=== PATIENT | male | born 1960 | race Caucasian/White ===

== ENCOUNTER 2022-06-12 11:08 | Emergency (ER) | payer OTHER ==
[2022-06-12 12:31] LABS: INR-International Normal Ratio 1.5; PTT 27.6 sec (22.0-33.0); Prothrombin Time 15.7 sec (9.5-12.1)
[2022-06-12 12:34] LABS: ALT (SGPT) 89 U/L (8-55); AST (SGOT) 121 U/L (5-34); Albumin 2.2 g/dL (3.4-4.8); Alkaline Phosphatase 161 U/L (40-110); Anion Gap 12 mmol/L (10-20); BUN (Urea Nitrogen) 12 mg/dL (8.4-25.7); Bilirubin, Total 4.6 mg/dL (0.2-1.2); CK (CPK) 152 U/L (30-200); CRP (Inflammatory) 5.04 mg/dL (= or < 0.5); Calc. Creatinine Clearance 0 mL/min (70-130); Calcium 8.3 mg/dL (7.8-10.44); Carbon Dioxide 22 mmol/L (23-31); Chloride 101 mmol/L (98-107); Estimated GFR 105; Globulin 4.9 g/dL (2.4-3.5); Glucose 90 mg/dL (80-115); Potassium 3.8 mmol/L (3.5-5.1); Protein, Total 7.1 g/dL (5.8-8.1); Sodium 131 mmol/L (136-145)
[2022-06-12 12:40] LABS: #Eosinphils 0.1 10x3/uL (0.0-0.5); #Monocytes 0.5 10x3/uL (0.0-1.1); #Neutrophils 3.4 10x3/uL (1.5-8.4); %Basophils 0.6 % (0.0-2.0); %Eosinophils 1.2 % (0.0-6.0); %Lymphocytes 15.8 % (18.0-47.0); %Neutrophils 70.6 % (40.0-75.0); Mean Corpuscular HGB CONC 34.5 g/dL (32.0-36.0); Mean Corpuscular Hemoglobin 33.9 pg (27.0-33.0); Mean Corpuscular Volume 98.4 fl (81.2-95.1); Platelet Count 80 10x3/uL (150-450); RBC Distribution Width 14.3 % (11.5-14.5); Red Blood Cell (RBC) Count 3.83 10x6/uL (4.32-5.72); White Blood Cell (WBC) Count 4.8 10x3/uL (3.5-10.5)
[2022-06-12 12:44] LABS: SARS-CoV-2 NAA Rapid Test Not Detected (NotDetected)
[2022-06-12] MEDS ORDERED: Furosemide 40 MG/4 ML VIAL ONE (14:06)
[2022-06-12] MEDS ORDERED: cefTRIAXone\\ROCEPHIN 2 GM VIAL ONE (14:06)
[2022-06-12 15:24] LABS: Lactic Acid 2.6 mmol/L (0.5-2.2)
== END 2022-06-12 18:04 | disposition short-term general hospital (02) ==
LOC: CSHERS 11:08
DX: R10.9 Unspecified abdominal pain (principal); R18.8 Other ascites; J44.9 Chronic obstructive pulmonary disease, unspecified; I10 Essential (primary) hypertension; E03.9 Hypothyroidism, unspecified; Z20.822 Contact with and (suspected) exposure to COVID-19
CPT/HCPCS: 36415; 71045; 80053; 82140; 82550; 83605; 83690; 85025; 85610; 85730; 86140; 87040; 93005; 96365; 96366; 96375; J0696; J1940; J3370; U0002

== ENCOUNTER 2022-07-05 15:49 | Emergency (ER) | payer OTHER ==
[2022-07-05 16:56] LABS: #Monocytes 1.1 10x3/uL (0.0-1.1); #Neutrophils 8.6 10x3/uL (1.5-8.4); %Basophils 0.2 % (0.0-2.0); %Lymphocytes 5.8 % (18.0-47.0); %Monocytes 10.2 % (0.0-10.0); %Neutrophils 83.2 % (40.0-75.0); Hemoglobin 14.1 g/dL (13.5-17.5); Mean Corpuscular HGB CONC 35.2 g/dL (32.0-36.0); Mean Corpuscular Volume 93.9 fl (81.2-95.1); Mean Platelet Volume 10.5 fl (7.4-10.4); Platelet Count 79 10x3/uL (150-450); RBC Distribution Width 14.9 % (11.5-14.5); Red Blood Cell (RBC) Count 4.24 10x6/uL (4.32-5.72); White Blood Cell (WBC) Count 10.1 10x3/uL (3.5-10.5)
[2022-07-05 17:06] LABS: ALT (SGPT) 94 U/L (8-55); AST (SGOT) 180 U/L (5-34); Albumin 1.9 g/dL (3.4-4.8); Alkaline Phosphatase 305 U/L (40-110); Anion Gap 11 mmol/L (10-20); BUN (Urea Nitrogen) 19 mg/dL (8.4-25.7); Bilirubin, Total 6.1 mg/dL (0.2-1.2); Calc. Creatinine Clearance 0 mL/min (70-130); Calcium 8.1 mg/dL (7.8-10.44); Carbon Dioxide 24 mmol/L (23-31); Chloride 93 mmol/L (98-107); Estimated GFR 66; Globulin 4.8 g/dL (2.4-3.5); Glucose 109 mg/dL (80-115); Potassium 3.7 mmol/L (3.5-5.1); Protein, Total 6.7 g/dL (5.8-8.1); Sodium 124 mmol/L (136-145)
== END 2022-07-05 19:03 ==
LOC: CSHERS 15:49 → EEVIPCON 15:49 → CSHERS 19:03
DX: K74.60 Unspecified cirrhosis of liver (principal); E87.1 Hypo-osmolality and hyponatremia; R74.01 Elevation of levels of liver transaminase levels; E86.0 Dehydration; R41.0 Disorientation, unspecified; J44.9 Chronic obstructive pulmonary disease, unspecified; I10 Essential (primary) hypertension; E03.9 Hypothyroidism, unspecified; Z91.14 Patient's other noncompliance with medication regimen
CPT/HCPCS: 36415; 71045; 80053; 82140; 83880; 84484; 85025; 93005

== ENCOUNTER 2022-07-09 09:25 | Inpatient (IN) | payer OTHER ==
[2022-07-09] MEDS ORDERED: NOREPINEPHRINE 8 MG/250 ML-D5W 250 ML ONE ×2 (09:37→14:17)
[2022-07-09] MEDS ORDERED: Fentanyl 100 MCG/2 ML VIAL ONE (09:54)
[2022-07-09] MEDS ORDERED: Cefepime 2 GM VIAL ONE ×2 (10:23)
[2022-07-09 10:55] LABS: ALT (SGPT) 119 U/L (8-55); AST (SGOT) 292 U/L (5-34); Albumin 1.5 g/dL (3.4-4.8); Alkaline Phosphatase 316 U/L (40-110); Anion Gap 22 mmol/L (10-20); BUN (Urea Nitrogen) 46 mg/dL (8.4-25.7); Bilirubin, Total 8.3 mg/dL (0.2-1.2); Calc. Creatinine Clearance 0 mL/min (70-130); Calcium 7.2 mg/dL (7.8-10.44); Carbon Dioxide 13 mmol/L (23-31); Chloride 92 mmol/L (98-107); Estimated GFR 20; Glucose 83 mg/dL (80-115); Potassium 4.7 mmol/L (3.5-5.1); Protein, Total 5.5 g/dL (5.8-8.1); Sodium 122 mmol/L (136-145)
[2022-07-09 10:57] LABS: Acetaminophen Less than 10.0 mcg/mL (10.0-30.0); Alcohol Less than 10 mg/dL (Less than 10); Hemoglobin 14.1 g/dL (13.5-17.5); Lipase 216 U/L (8-78); Magnesium 2.4 mg/dL (1.6-2.6); Mean Corpuscular HGB CONC 36.5 g/dL (32.0-36.0); Mean Corpuscular Hemoglobin 33.6 pg (27.0-33.0); Mean Corpuscular Volume 91.9 fl (81.2-95.1); Mean Platelet Volume 10.9 fl (7.4-10.4); Platelet Count 82 10x3/uL (150-450); RBC Distribution Width 15.1 % (11.5-14.5); Salicylate Less than 8.0 mg/dL (15.0-30.0); White Blood Cell (WBC) Count 26.3 10x3/uL (3.5-10.5)
[2022-07-09 11:13] LABS: Actual Bicarbonate (HCO3v) 15 mEq/L (22-28); Calcium, Ionized (venous) 0.96 mmol/L (1.16-1.32); Chloride (VBG) 92 mmol/L (98-106); Hemoglobin (Hb) 14.8 g/dL (13.1-17.2); Potassium (VBG) 4.41 mmol/L (3.70-5.30); Puncture Site Other Site; RapidComm Collect By CBN; Sodium 123.3 mmol/L (133-146); pH (venous) 7.21 (7.32-7.43)
[2022-07-09 11:15] LABS: CKMB 15.3 ng/mL (0-6.6)
[2022-07-09 11:30] LABS: INR-International Normal Ratio 2.7; PTT 45.8 sec (22.0-33.0); Prothrombin Time 27.3 sec (9.5-12.1)
[2022-07-09 11:34] LABS: Band 14 % (5-11); Lymphocytes 1 % (21-51); Monocytes 3 % (0-10); Myelocyte 1 % (0-0); Reactive Lymphocytes 1 % (0-10)
[2022-07-09 11:40] LABS: Anisocytosis SLIGHT = 6-15 cells (100X) (0-5/hpf); Neutrophil 80 % (42-75)
[2022-07-09] MEDS ORDERED: Albumin 25% 100 ML ONE ×2 (11:41→12:05)
[2022-07-09 11:43] LABS: Burr Cells SLIGHT = 2-5 cells (100X) (0-1/hpf); Crenated RBC SLIGHT = 1-5 cells (100X) (None Seen); Platelet Clumps MODERATE; Platelet Morphology Comment Appears Decreased; Poikilocytosis SLIGHT = 6-15 cells (100X) (0-5/hpf)
[2022-07-09 11:44] LABS: Large Platelets SLIGHT; Toxic Granulation SLIGHT
[2022-07-09 11:46] LABS: Amphetamine Not Detected (NotDetected); Barbiturates Screen Not Detected (NotDetected); Benzodiazepine Screen Not Detected (NotDetected); Cocaine Metabolite Screen Not Detected (NotDetected); Methadone Not Detected (NotDetected); Methamphetamine Not Detected (NotDetected); Opiate Screen Not Detected (NotDetected); Oxycodone Screen Not Detected (NotDetected); Phencyclidine (PCP) Not Detected (NotDetected); THC/Cannabinoid Screen Not Detected (NotDetected); Tricyclic Screen Not Detected (NotDetected)
[2022-07-09 11:46] LABS: MDiff Complete? YES
[2022-07-09 11:49] LABS: Bilirubin 3+ (Negative); Blood, Urine 25 (Negative); Clarity Sl. Cloudy (Clear); Glucose, Urine (Dipstick) Normal (Negative); Ketone, Urine 5 mg/dL (Negative); Leukocyte 25 (Negative); Nitrite Positive (Negative); Protein, Urine (Dipstick) 30 mg/dl (Neg-Trace)
[2022-07-09 11:54] LABS: Bacteria/HPF 2+ HPF (None Seen); RBC/HPF 0-3 HPF (0-3); Squamous Epithelial 0-3 HPF (0-3); WBC/HPF 0-3 HPF (0-3)
[2022-07-09] MEDS ORDERED: Calcium Gluc 4.6 MEQ/10 ML (100 MG/ML) ONE (12:04)
[2022-07-09] MEDS ORDERED: Acetaminophen 325 MG TAB PO PRN (12:05)
[2022-07-09] MEDS ORDERED: Ondansetron PF 4 MG/2 ML Vial IVP PRN (12:05)
[2022-07-09] MEDS ORDERED: Communication Order-Pharmacy FS SCH (12:05)
[2022-07-09] MEDS ORDERED: Acetaminophen 650 MG Suppository PR PRN (12:05)
[2022-07-09] MEDS ORDERED: Ventilator Sedation Protocol 1 EACH FS ONE (12:05)
[2022-07-09 12:07] LABS: SARS-CoV-2 NAA Rapid Test Not Detected (NotDetected)
[2022-07-09] MEDS ORDERED: Piperacillin/Tazobactam 3.375 GM in Sodium Chloride 0.9% 100 ML IVPB SCH (12:15)
[2022-07-09 13:26] LABS: Hemoglobin 13.4 g/dL (13.5-17.5); Mean Corpuscular HGB CONC 34.4 g/dL (32.0-36.0); Mean Corpuscular Hemoglobin 32.6 pg (27.0-33.0); Mean Corpuscular Volume 94.9 fl (81.2-95.1); Platelet Count 74 10x3/uL (150-450); RBC Distribution Width 15.4 % (11.5-14.5); Red Blood Cell (RBC) Count 4.11 10x6/uL (4.32-5.72)
[2022-07-09 13:32] LABS: INR-International Normal Ratio 2.8; Prothrombin Time 29.2 sec (9.5-12.1)
[2022-07-09 13:40] LABS: Phosphorus 6.5 mg/dL (2.3-4.7)
[2022-07-09 13:42] LABS: ALT (SGPT) 120 U/L (8-55); AST (SGOT) 291 U/L (5-34); Albumin 2.5 g/dL (3.4-4.8); Alkaline Phosphatase 287 U/L (40-110); Anion Gap 24 mmol/L (10-20); BUN (Urea Nitrogen) 46 mg/dL (8.4-25.7); Bilirubin, Total 9.1 mg/dL (0.2-1.2); Calc. Creatinine Clearance 28 mL/min (70-130); Calcium 7.5 mg/dL (7.8-10.44); Carbon Dioxide 13 mmol/L (23-31); Chloride 92 mmol/L (98-107); Estimated GFR 19; Globulin 3.6 g/dL (2.4-3.5); Glucose 108 mg/dL (80-115); Potassium 4.8 mmol/L (3.5-5.1); Protein, Total 6.1 g/dL (5.8-8.1); Sodium 124 mmol/L (136-145); Vancomycin, Trough 31.8 ug/mL
[2022-07-09 13:42] LABS: Strep pneumo Urine Ag NEGATIVE (NEGATIVE)
[2022-07-09 13:43] LABS: Bilirubin, Direct 4.8 mg/dL (0.1-0.3); Bilirubin, Total 9.2 mg/dL (0.2-1.2); Magnesium 2.5 mg/dL (1.6-2.6)
[2022-07-09 13:44] LABS: Bilirubin 3+ (Negative); Blood, Urine 25 (Negative); Glucose, Urine (Dipstick) Normal (Negative); Ketone, Urine 5 mg/dL (Negative); Leukocyte 25 (Negative); Nitrite Positive (Negative); Protein, Urine (Dipstick) 30 mg/dl (Neg-Trace)
[2022-07-09] MEDS ORDERED: Sodium Bicarb 50 MEQ/50 ML VIAL IVP SCH ×2 (13:45→16:15)
[2022-07-09 13:57] LABS: Clarity Slightly Cloudy (Clear)
[2022-07-09 13:58] LABS: HIV (1/2) Antibody/Antigen Non-Reactive (NonReactive); HIV 1/2 INDEX 0.15 S/CO (<1.00); Thyroid Stimulating Hormone 2.6979 uIU/mL (0.35-4.94)
[2022-07-09 13:59] LABS: Bacteria/HPF 2+ HPF (None Seen)
[2022-07-09 14:00] LABS: RBC/HPF 0-3 HPF (0-3); WBC/HPF 0-3 HPF (0-3)
[2022-07-09] MEDS ORDERED: Meropenem 1 GM in Sodium Chloride 0.9% 100 ML IVPB SCH (14:00)
[2022-07-09] MEDS ORDERED: Propofol BOLUS 1,000 MG/100 ML VIAL IV PRN (14:00)
[2022-07-09] MEDS ORDERED: Propofol 1,000 MG/100 ML VIAL IV PRN (14:00)
[2022-07-09] MEDS ORDERED: Fentanyl BOLUS 250 ML IVPB PRN (14:00)
[2022-07-09] MEDS ORDERED: Lorazepam 2 MG/ML VIAL SLOW IVP PRN (14:00)
[2022-07-09] MEDS ORDERED: Octreotide Acetate 100 MCG/ML VIAL SC SCH (14:00)
[2022-07-09] MEDS ORDERED: DISCONTINUE PREVIOUS NARCOTIC PAIN MEDICATIONS AND BENZODIAZEPINES FS SCH (14:00)
[2022-07-09] MEDS ORDERED: Morphine 2 MG/ML VIAL SLOW IVP PRN (14:00)
[2022-07-09 14:06] LABS: ALV-art Gradient 305.275 mmHg (0-20); Actual Bicarbonate (HCO3a) 16.1 mEq/L (22-28); Base Excess (BEa) -12.1 mEq/L (-2.0 to +3.0); CO2 Tension 44.5 mmHg (35.0-45.0); Calcium, Ionized (arterial) 0.97 mmol/L (1.12-1.30); Carboxyhemoglobin (COHb) 0.7 gm% (0.0-3.0); Hemoglobin (Hb) 14.3 g/dL (14.0-18.0); O2 Tension (PaO2), arterial 66.9 mmHg (> 80.0); Potassium - ABG Lab 4.7 mmol/L (3.70-5.30); Puncture Site RRA; pH, Arterial 7.18 (7.35-7.45)
[2022-07-09 14:09] LABS: Band 14 % (5-11); Lymphocytes 3 % (21-51); Metamyelocyte 5 % (0-0); Monocytes 6 % (0-10); Myelocyte 3 % (0-0)
[2022-07-09 14:13] LABS: Anisocytosis SLIGHT = 6-15 cells (100X) (0-5/hpf); Burr Cells MODERATE= 6-15 cells (100X) (0-1/hpf); Crenated RBC MODERATE= 6-15 cells (100X) (None Seen); Neutrophil 69 % (42-75); Poikilocytosis MODERATE=16-30 cells (100X) (0-5/hpf)
[2022-07-09] MEDS ORDERED: Vancomycin DOSE BY LEVEL IVPB PRN (14:13)
[2022-07-09] MEDS: Vasopressin 20 UNIT, Admixture Fee 1 EACH in Sodium Chloride 0.9% 50 ML IV SCH ×2 (14:13→19:41)
[2022-07-09] MEDS: Octreotide Acetate 1,250 MCG in Sodium Chloride 0.9% 250 ML 250 ML IVPB SCH (14:13)
[2022-07-09 14:14] LABS: Large Platelets SLIGHT; Toxic Granulation SLIGHT; Vacuoles SLIGHT
[2022-07-09] MEDS ORDERED: Rocuronium Bromide 10 MG/ML (10ML VIAL) ONE (14:14)
[2022-07-09 14:15] LABS: Platelet Morphology Comment Appears Decreased
[2022-07-09 14:16] LABS: MDiff Complete? YES
[2022-07-09 14:29] LABS: Creatinine, Urine 238.06 mg/dL (63-166); Protein, Urine Random Quant 108 mg/dL (1-14)
[2022-07-09 14:39] LABS: Glucose 162 mg/dL (80-115)
[2022-07-09] MEDS ORDERED: Albumin 25% 25 GM/100 ML BOT IVPB SCH (14:45)
[2022-07-09] MEDS ORDERED: Heparin 5,000 UNITS/ML VIAL SC SCH (15:00)
[2022-07-09 15:07] LABS: Lactic Acid 8.6 mmol/L (0.5-2.2)
[2022-07-09] MEDS: Albumin 25% 25 GM/100 ML BOT IVPB SCH ×2 (15:27→21:16)
[2022-07-09 16:01] LABS: Body Fluid Source Paracentesis Fluid; Tube # EDTA
[2022-07-09 16:02] LABS: BF Color Yellow; Clarity Hazy (Clear)
[2022-07-09 16:21] LABS: Glucose 179 mg/dL (80-115)
[2022-07-09 16:25] LABS: Lactic Acid 7.4 mmol/L (0.5-2.2)
[2022-07-09 16:38] LABS: BF Segmented Neutrophils 52 %; Lymphocytes 48 %
[2022-07-09 17:12] LABS: Actual Bicarbonate (HCO3a) 15.9 mEq/L (22-28); Base Excess (BEa) -11.7 mEq/L (-2.0 to +3.0); Calcium, Ionized (arterial) 0.97 mmol/L (1.12-1.30); Carboxyhemoglobin (COHb) 0.7 gm% (0.0-3.0); Hemoglobin (Hb) 14.4 g/dL (14.0-18.0); O2 Tension (PaO2), arterial 85.2 mmHg (> 80.0); Potassium - ABG Lab 4.7 mmol/L (3.70-5.30); Puncture Site RRA; Temperature 36.5 C
[2022-07-09] MEDS: NOREPINEPHRINE 8 MG/250 ML-D5W 250 ML IVPB SCH ×2 (18:36→23:49)
[2022-07-09 18:43] LABS: BUN (Urea Nitrogen) 50 mg/dL (8.4-25.7); Calc. Creatinine Clearance 26 mL/min (70-130); Potassium 4.8 mmol/L (3.5-5.1)
[2022-07-09 19:11] LABS: Glucose 132 mg/dL (80-115)
[2022-07-09 20:27] LABS: ALT (SGPT) 148 U/L (8-55); AST (SGOT) 413 U/L (5-34); Albumin 3.3 g/dL (3.4-4.8); Alkaline Phosphatase 206 U/L (40-110); Anion Gap 24 mmol/L (10-20); Bilirubin, Total 10.6 mg/dL (0.2-1.2); Calcium 7.6 mg/dL (7.8-10.44); Carbon Dioxide 18 mmol/L (23-31); Chloride 87 mmol/L (98-107); Estimated GFR 17; Globulin 2.6 g/dL (2.4-3.5); Glucose 132 mg/dL (80-115); Protein, Total 5.9 g/dL (5.8-8.1); Sodium 124 mmol/L (136-145)
[2022-07-09] MEDS: Famotidine/PF 20 mg/2ml Vial SLOW IVP SCH (20:32)
[2022-07-09] MEDS: Rifaximin 550 MG TAB PO SCH (20:33)
[2022-07-09] MEDS ORDERED: Famotidine/PF 20 mg/2ml Vial SLOW IVP SCH (21:00)
[2022-07-09 21:14] LABS: Glucose 140 mg/dL (80-115)
[2022-07-09] MEDS: Meropenem 500 MG in Sodium Chloride 0.9% 100 ML IVPB SCH (22:04)
[2022-07-09 22:51] LABS: Sodium, Urine Less than 20 mmol/L (Not Available)
[2022-07-09 22:55] LABS: Glucose 137 mg/dL (80-115)
[2022-07-10] MEDS: Vasopressin 20 UNIT, Admixture Fee 1 EACH in Sodium Chloride 0.9% 50 ML IV SCH ×2 (00:04→12:29)
[2022-07-10] MEDS: FENTANYL 2,000MCG/100-0.9%NACL 100 ML IVPB SCH (00:08)
[2022-07-10] MEDS: Sodium Bicarbonate 150 MEQ in Dextrose 5% in Water 1,000 ML IV SCH (01:35)
[2022-07-10] MEDS ORDERED: ADMIXTURE FEE IVPB SCH (02:00)
[2022-07-10] MEDS ORDERED: SODIUM CHLORIDE IVPB SCH (02:00)
[2022-07-10] MEDS ORDERED: CALCIUM GLUCONATE IVPB SCH (02:00)
[2022-07-10] MEDS: Albumin 25% 25 GM/100 ML BOT IVPB SCH ×2 (03:34→08:28)
[2022-07-10 03:46] LABS: Hemoglobin 12.9 g/dL (13.5-17.5); Mean Corpuscular HGB CONC 35.2 g/dL (32.0-36.0); Mean Corpuscular Hemoglobin 32.7 pg (27.0-33.0); Mean Corpuscular Volume 92.7 fl (81.2-95.1); Mean Platelet Volume 11.3 fl (7.4-10.4); Platelet Count 79 10x3/uL (150-450); RBC Distribution Width 15.4 % (11.5-14.5); Red Blood Cell (RBC) Count 3.95 10x6/uL (4.32-5.72); White Blood Cell (WBC) Count 24.7 10x3/uL (3.5-10.5)
[2022-07-10 03:47] LABS: MDiff Complete? YES; Platelet Morphology Comment Appears Decreased
[2022-07-10 03:58] LABS: ALT (SGPT) 191 U/L (8-55); AST (SGOT) 503 U/L (5-34); Albumin 3.2 g/dL (3.4-4.8); Alkaline Phosphatase 229 U/L (40-110); Anion Gap 21 mmol/L (10-20); BUN (Urea Nitrogen) 55 mg/dL (8.4-25.7); Bilirubin, Direct 5.8 mg/dL (0.1-0.3); Bilirubin, Total 11.8 mg/dL (0.2-1.2); Calc. Creatinine Clearance 23 mL/min (70-130); Calcium 7.3 mg/dL (7.8-10.44); Carbon Dioxide 20 mmol/L (23-31); Chloride 89 mmol/L (98-107); Estimated GFR 15; Globulin 2.6 g/dL (2.4-3.5); Glucose 159 mg/dL (80-115); Potassium 4.8 mmol/L (3.5-5.1); Protein, Total 5.8 g/dL (5.8-8.1); Sodium 125 mmol/L (136-145)
[2022-07-10 04:06] LABS: Band 5 % (5-11); Lymphocytes 3 % (21-51); Monocytes 7 % (0-10); Neutrophil 84 % (42-75); Reactive Lymphocytes 1 % (0-10)
[2022-07-10] MEDS: NOREPINEPHRINE 8 MG/250 ML-D5W 250 ML IVPB SCH ×5 (04:09→20:19)
[2022-07-10 06:45] LABS: Glucose 173 mg/dL (80-115)
[2022-07-10] MEDS ORDERED: Phytonadione 10 MG/ML AMP PO SCH (07:00)
[2022-07-10] MEDS: Famotidine/PF 20 mg/2ml Vial SLOW IVP SCH (08:27)
[2022-07-10] MEDS: Meropenem 500 MG in Sodium Chloride 0.9% 100 ML IVPB SCH ×2 (08:28→21:09)
[2022-07-10] MEDS: Rifaximin 550 MG TAB PO SCH ×2 (08:28→20:19)
[2022-07-10 08:34] LABS: Glucose 172 mg/dL (80-115)
[2022-07-10] MEDS ORDERED: Albumin 25% 25 GM/100 ML BOT IVPB SCH (09:00)
[2022-07-10 09:10] LABS: Actual Bicarbonate (HCO3a) 19.5 mEq/L (22-28); Base Excess (BEa) -5.8 mEq/L (-2.0 to +3.0); Calcium, Ionized (arterial) 0.96 mmol/L (1.12-1.30); Carboxyhemoglobin (COHb) 0.3 gm% (0.0-3.0); Hemoglobin (Hb) 13.9 g/dL (14.0-18.0); O2 Tension (PaO2), arterial 62.1 mmHg (> 80.0); Potassium - ABG Lab 4.6 mmol/L (3.70-5.30); Puncture Site RRA; Temperature 36.5 C; pH, Arterial 7.33 (7.35-7.45)
[2022-07-10 10:38] VITALS: BMI 30.5
[2022-07-10 12:39] LABS: Vancomycin, Random 10.7 ug/mL (See Comment)
[2022-07-10] MEDS ORDERED: Vancomycin HCl 750 MG in Sodium Chloride 0.9% 250 ML 250 ML IVPB SCH (13:00)
[2022-07-10 13:35] LABS: Glucose 256 mg/dL (80-115)
[2022-07-10] MEDS ORDERED: Dextrose 5% in Water 1,000 ML IV PRN (15:34)
[2022-07-10] MEDS ORDERED: Dextrose 50% Abboject 50 ML SYRINGE SLOW IVP PRN (15:34)
[2022-07-10] MEDS ORDERED: HumaLOG 300 UNITS/3 ML VIAL SC PRN ×2 (15:34)
[2022-07-10 16:28] VITALS: TEMP 97.6
[2022-07-10] MEDS: Octreotide Acetate 1,250 MCG in Sodium Chloride 0.9% 250 ML 250 ML IVPB SCH (16:34)
[2022-07-10 16:48] LABS: Glucose 188 mg/dL (80-115)
[2022-07-10 20:39] LABS: Glucose 148 mg/dL (80-115)
[2022-07-11] MEDS: NOREPINEPHRINE 8 MG/250 ML-D5W 250 ML IVPB SCH ×6 (00:01→20:11)
[2022-07-11] MEDS: Sodium Bicarbonate 150 MEQ in Dextrose 5% in Water 1,000 ML IV SCH (00:02)
[2022-07-11] MEDS: Vasopressin 20 UNIT, Admixture Fee 1 EACH in Sodium Chloride 0.9% 50 ML IV SCH ×3 (00:24→19:04)
[2022-07-11 01:22] LABS: Glucose 136 mg/dL (80-115)
[2022-07-11 04:51] LABS: #Basophils 0.1 10x3/uL (0.0-0.2); #Monocytes 1.6 10x3/uL (0.0-1.1); %Basophils 0.3 % (0.0-2.0); %Eosinophils 0.1 % (0.0-6.0); %Lymphocytes 4.9 % (18.0-47.0); %Monocytes 8.4 % (0.0-10.0); %Neutrophils 83.9 % (40.0-75.0); Hemoglobin 14.4 g/dL (13.5-17.5); Mean Corpuscular HGB CONC 36.2 g/dL (32.0-36.0); Mean Corpuscular Volume 91.3 fl (81.2-95.1); Mean Platelet Volume 10.8 fl (7.4-10.4); Platelet Count 69 10x3/uL (150-450); RBC Distribution Width 15.5 % (11.5-14.5); Red Blood Cell (RBC) Count 4.36 10x6/uL (4.32-5.72); White Blood Cell (WBC) Count 19.1 10x3/uL (3.5-10.5)
[2022-07-11 05:07] LABS: ALT (SGPT) 289 U/L (8-55); AST (SGOT) 577 U/L (5-34); Albumin 2.8 g/dL (3.4-4.8); Alkaline Phosphatase 238 U/L (40-110); Anion Gap 18 mmol/L (10-20); BUN (Urea Nitrogen) 63 mg/dL (8.4-25.7); Bilirubin, Total 12.2 mg/dL (0.2-1.2); Calc. Creatinine Clearance 18 mL/min (70-130); Calcium 7.2 mg/dL (7.8-10.44); Carbon Dioxide 23 mmol/L (23-31); Chloride 87 mmol/L (98-107); Estimated GFR 11; Globulin 2.8 g/dL (2.4-3.5); Glucose 133 mg/dL (80-115); Potassium 4.6 mmol/L (3.5-5.1); Protein, Total 5.6 g/dL (5.8-8.1); Sodium 123 mmol/L (136-145)
[2022-07-11 05:14] LABS: Actual Bicarbonate (HCO3a) 21.7 mEq/L (22-28); Base Excess (BEa) -4.7 mEq/L (-2.0 to +3.0); CO2 Tension 44.5 mmHg (35.0-45.0); Calcium, Ionized (arterial) 0.95 mmol/L (1.12-1.30); Carboxyhemoglobin (COHb) 0.3 gm% (0.0-3.0); O2 Tension (PaO2), arterial 52.9 mmHg (> 80.0); Potassium - ABG Lab 4.5 mmol/L (3.70-5.30); Puncture Site RRA; pH, Arterial 7.31 (7.35-7.45)
[2022-07-11 05:15] LABS: ALV-art Gradient 604.475 mmHg (0-20)
[2022-07-11] MEDS: Meropenem 500 MG in Sodium Chloride 0.9% 100 ML IVPB SCH ×2 (08:44→21:49)
[2022-07-11] MEDS: FENTANYL 2,000MCG/100-0.9%NACL 100 ML IVPB SCH (08:45)
[2022-07-11] MEDS ORDERED: Famotidine/PF 20 mg/2ml Vial SLOW IVP SCH (09:00)
[2022-07-11 09:21] LABS: Glucose 120 mg/dL (80-115)
[2022-07-11] MEDS: Rifaximin 550 MG TAB PO SCH ×2 (09:22→20:41)
[2022-07-11] MEDS ORDERED: Sodium Bicarbonate 150 MEQ in Dextrose 5% in Water 1,000 ML IV SCH (09:30)
[2022-07-11] MEDS: Albumin 25% 25 GM/100 ML BOT IVPB SCH ×2 (11:49→20:11)
[2022-07-11] MEDS ORDERED: Albumin 25% 25 GM/100 ML BOT IVPB SCH (12:30)
[2022-07-11] MEDS: Phenylephrine 40 MG/NS 250 ML 40 MG in Premix Bag 1 BAG IVPB SCH ×4 (12:39→23:56)
[2022-07-11] MEDS: Hydrocortisone Sod Succ/PF 100 mg/2 ml Vial IVP SCH ×2 (12:40→20:11)
[2022-07-11 13:35] LABS: Vancomycin, Random 16.9 ug/mL (See Comment)
[2022-07-11] MEDS ORDERED: Vancomycin HCl 500 MG in Sodium Chloride 0.9% 100 ML IVPB SCH (14:00)
[2022-07-11 21:51] LABS: Glucose 51 mg/dL (80-115)
[2022-07-11 22:34] LABS: Glucose 154 mg/dL (80-115)
[2022-07-11] MEDS: Octreotide Acetate 1,250 MCG in Sodium Chloride 0.9% 250 ML 250 ML IVPB SCH (23:57)
[2022-07-11 23:59] VITALS: BP 105/57
[2022-07-12] MEDS: Albumin 25% 25 GM/100 ML BOT IVPB SCH (00:29)
[2022-07-12] MEDS: Hydrocortisone Sod Succ/PF 100 mg/2 ml Vial IVP SCH (00:30)
[2022-07-12] MEDS: NOREPINEPHRINE 8 MG/250 ML-D5W 250 ML IVPB SCH ×2 (00:30→04:09)
[2022-07-12 01:10] LABS: Glucose 87 mg/dL (80-115)
[2022-07-12] MEDS: Phenylephrine 40 MG/NS 250 ML 40 MG in Premix Bag 1 BAG IVPB SCH (03:24)
[2022-07-12] MEDS: Vasopressin 20 UNIT, Admixture Fee 1 EACH in Sodium Chloride 0.9% 50 ML IV SCH (04:10)
[2022-07-12 05:07] LABS: ALT (SGPT) 1171 U/L (8-55); AST (SGOT) Greater than 3500 U/L (5-34); Albumin 2.9 g/dL (3.4-4.8); Alkaline Phosphatase 276 U/L (40-110); Anion Gap 29 mmol/L (10-20); BUN (Urea Nitrogen) 63 mg/dL (8.4-25.7); Bilirubin, Total 10.6 mg/dL (0.2-1.2); Calc. Creatinine Clearance 16 mL/min (70-130); Calcium 6.7 mg/dL (7.8-10.44); Carbon Dioxide 11 mmol/L (23-31); Chloride 85 mmol/L (98-107); Estimated GFR 9; Glucose 58 mg/dL (80-115); Potassium 7.5 mmol/L (3.5-5.1); Protein, Total 4.9 g/dL (5.8-8.1); Sodium 117 mmol/L (136-145)
[2022-07-12 20:13] LABS: Lipase-Fluid 82 U/L (.)
== END 2022-07-12 11:30 | disposition expired | DRG 871 ==
LOC: CSHERS 09:25 → CSHIMCU 12:21 → EEVIPCON 12:21
PROVIDERS: ADMIT Family Medicine; ATTEND Family Medicine
PROC: 5A1945Z Respiratory Ventilation, 24-96 Consecutive Hours (ICD-10-PCS; principal; 2022-07-09)
PROC: 0BH18EZ Insertion of Endotracheal Airway into Trachea, Via Natural or Artificial Opening Endoscopic (ICD-10-PCS; 2022-07-09)
PROC: 0D9670Z Drainage of Stomach with Drainage Device, Via Natural or Artificial Opening (ICD-10-PCS; 2022-07-09)
PROC: 6A4Z0ZZ Hypothermia, Single (ICD-10-PCS; 2022-07-09)
PROC: 0W9G3ZX Drainage of Peritoneal Cavity, Percutaneous Approach, Diagnostic (ICD-10-PCS; 2022-07-09)
PROC: 3E033XZ Introduction of Vasopressor into Peripheral Vein, Percutaneous Approach (ICD-10-PCS; 2022-07-09)
PROC: 30233J1 Transfusion of Nonautologous Serum Albumin into Peripheral Vein, Percutaneous Approach (ICD-10-PCS; 2022-07-09)
PROC: 3E03329 Introduction of Other Anti-infective into Peripheral Vein, Percutaneous Approach (ICD-10-PCS; 2022-07-09)
PROC: 06HY33Z Insertion of Infusion Device into Lower Vein, Percutaneous Approach (ICD-10-PCS; 2022-07-09)
DX: A41.9 Sepsis, unspecified organism (principal); G93.41 Metabolic encephalopathy; R65.21 Severe sepsis with septic shock; J96.01 Acute respiratory failure with hypoxia; K76.7 Hepatorenal syndrome; K85.90 Acute pancreatitis without necrosis or infection, unspecified; N17.0 Acute kidney failure with tubular necrosis; J69.0 Pneumonitis due to inhalation of food and vomit; E87.20 Acidosis, unspecified; E87.1 Hypo-osmolality and hyponatremia; C22.8 Malignant neoplasm of liver, primary, unspecified as to type; N39.0 Urinary tract infection, site not specified; D68.9 Coagulation defect, unspecified; B19.10 Unspecified viral hepatitis B without hepatic coma; J44.1 Chronic obstructive pulmonary disease with (acute) exacerbation; J44.0 Chronic obstructive pulmonary disease with (acute) lower respiratory infection; Z66 Do not resuscitate; B18.2 Chronic viral hepatitis C; K74.60 Unspecified cirrhosis of liver; I10 Essential (primary) hypertension; F32.A Depression, unspecified; E03.9 Hypothyroidism, unspecified; K76.82 Hepatic encephalopathy; Z20.822 Contact with and (suspected) exposure to COVID-19; K52.9 Noninfective gastroenteritis and colitis, unspecified; D69.6 Thrombocytopenia, unspecified; Z79.899 Other long term (current) drug therapy
CPT/HCPCS: 31500; 36415; 36556; 36600; 51702; 70450; 71045; 74176; 80053; 80202; 80306; 80307; 81003; 81015; 82042; 82140; 82247; 82330; 82375; 82533; 82553; 82570; 82805; 82945; 82947; 83605; 83615; 83690; 83735; 84100; 84145; 84156; 84157; 84300; 84443; 84484; 84560; 85025; 85610; 85730; 86850; 86900; 86901; 87040; 87070; 87077; 87086; 87149; 87186; 87205; 87389; 87449; 88112; 89051; 89220; 93005; 93010; 94002; 94003; 94640; 94760; 94762; 96365; 96366; 96368; 96375; 96376; J0610; J0692; J1720; J1815; J2185; J2354; J3010; J3370; J3430; J3490; J7050; J7070; J7620; J7999; P9047; S0028